=== PATIENT | female | born 2000 | race Caucasian/White ===

== ENCOUNTER 2024-09-05 10:54 | Emergency (ER) | payer BC ==
[2024-09-05 11:30] LABS: BASOPHILS PERCENT AUTO 0.1 % (0.2-1.2); EOSINOPHILS ABSOLUTE AUTO 0.1 x10^3/uL (0.0-0.5); EOSINOPHILS PERCENT AUTO 1.2 % (0.0-4.0); HEMATOCRIT 39.2 % (33.0-47.0); HEMOGLOBIN 14.1 g/dL (12.0-16.0); IMMATURE GRAN ABSOLUTE AUTO 0.01 x10^3/uL (0.00-0.07); LYMPHOCYTES ABSOLUTE AUTO 0.9 x10^3/uL (1.0-4.8); LYMPHOCYTES PERCENT AUTO 11.9 % (25.0-50.0); MEAN CORPUSCULAR HEMOGLOBIN 33.4 pg (26.0-32.0); MEAN CORPUSCULAR VOLUME 92.9 fL (78.0-93.0); MONOCYTES ABSOLUTE AUTO 0.5 x10^3/uL (0.0-0.8); MONOCYTES PERCENT AUTO 6.5 % (2.0-11.0); NEUTROPHILS ABSOLUTE AUTO 5.9 x10^3/uL (1.8-7.7); NEUTROPHILS PERCENT AUTO 80.2 % (50.0-80.0); PLATELET COUNT,PLT 199 x10^3/uL (130-400); RED BLOOD CELL COUNT 4.22 x10^6/uL (4.00-5.50); WHITE BLOOD CELL COUNT,WBC 7.4 x10^3/uL (4.0-10.0)
[2024-09-05 11:47] LABS: A/G RATIO 0.75; ALANINE AMINOTRANSFERASE,ALT 46 U/L (14-59); ALBUMIN 3.3 g/dL (3.4-5.0); ALKALINE PHOSPHATASE 63 U/L (46-116); ANION GAP 13.6 mmol/L (5-15); ASPARTATE AMNIOTRANSFERASE,AST 26 U/L (15-37); BILIRUBIN TOTAL 0.5 mg/dL (0.2-1.0); BLOOD UREA NITROGEN,BUN 7 mg/dL (7-18); CALCIUM 8.9 mg/dL (8.5-10.1); CARBON DIOXIDE,CO2 27 mmol/L (21-32); CHLORIDE,CL 102 mmol/L (98-107); CREATININE 0.9 mg/dL (0.55-1.02); ESTIMATED GFR 90 mL/min (>=60); GLUCOSE RANDOM 112 mg/dL (70-99); POTASSIUM,K 3.6 mmol/L (3.5-5.1); PROTEIN TOTAL,TP 7.7 g/dL (6.4-8.2); SODIUM,NA 139 mmol/L (136-145)
[2024-09-05] MEDS: Benzonatate 100 MG Cap PO ONE (12:37)
[2024-09-05] MEDS: cefTRIAXone 1 GM, Lidocaine 1% 2.1 ML IM ONE (12:38)
== END 2024-09-05 13:47 | disposition home or self-care (01) ==
LOC: VM.ED 10:54
DX: J18.9 Pneumonia, unspecified organism (principal); Z79.899 Other long term (current) drug therapy
CPT/HCPCS: 36415; 71046; 80053; 83605; 85025; 87428-QW; 96372; 99283; 99284; A9270-GY; J0696; J3490